=== PATIENT | female | born 1985 | race Caucasian/White ===

== ENCOUNTER 2021-01-02 12:17 | Outpatient (CLI) | payer BC, SELFPAY ==
[2021-01-02 12:45] VITALS: BP 126/81; PULSE 87
[2021-01-02 12:54] LABS: Basophils Percent Auto 0.2 % (0.2-1.2); Eosinophils Percent Auto 0.2 % (0-4.4); Hematocrit 30.3 % (37.0-47.0); Immature Granulocyte Absolute 0.04 K/mm3 (0.00-0.031); Immature Granulocyte Percent A 0.5 % (0-0.5); Lymphocytes Absolute Auto 1.49 K/mm3 (0.9-3.2); Lymphocytes Percent Auto 17.8 % (18.3-44.2); Mean Corpuscular Hemoglobin 31.7 pg (26-34); Mean Corpuscular Volume 96.2 fl (80-100); Mean Platelet Volume 10.5 fl (7.4-10.4); Monocytes Absolute Auto 0.6 K/mm3 (0.1-0.6); Monocytes Percent Auto 6.6 % (2.6-8.5); Neutrophils Absolute Auto 6.3 K/mm3 (1.3-6.7); Neutrophils Percent Auto 74.7 % (45.5-73.1); Platelet Count Result 375 k/mm3 (150-375); Red Blood Count 3.15 M/mm3 (4.2-5.4); Red Cell Distribution Width 12.1 % (11.5-14.5); White Blood Count 8.4 K/mm3 (4.5-10.0)
[2021-01-02 13:00] VITALS: BP 122/72; PULSE 85
[2021-01-02 13:07] LABS: Alanine Aminotransferase 22 U/L (4-35); Albumin Level 3.8 g/dL (3.5-5.1); Alkaline Phosphatase 173 U/L (38-126); Anion Gap 9 mmol/L (8-16); Aspartate Amino Transferase 29 U/L (14-36); Bilirubin,Total 0.2 mg/dL (0.2-1.3); Blood Urea Nitrogen 10 mg/dL (7-17); Calcium 9.7 mg/dL (8.4-10.2); Carbon Dioxide 24 mmol/L (22-30); Chloride 101 mmol/L (98-107); Estimated Glomerular Filt Rate > 60; Glucose 119 mg/dL (65-110); Potassium 3.9 mmol/L (3.4-5.0); Sodium 134 mmol/L (137-145)
[2021-01-02 13:09] LABS: Creatinine Urine 45.5 mg/dL; Total Protein Urine Random 9 mg/dL
[2021-01-02 13:16] VITALS: BP 116/69; PULSE 76
--- NOTE | 2021-01-02 13:18 | PC.NURSE ---
Called Dr. Chaparro with lab results, BPs and NST results. August D/C home to take Iron BID.
== END 2021-01-02 13:22 | disposition home or self-care (01) ==
LOC: ANHOBOP 12:27 → ANHOBPP 12:32
PROVIDERS: Visit Provider Obstetrics & Gynecology
DX: O13.3 Gestational [pregnancy-induced] hypertension without significant proteinuria, third trimester (principal); Z3A.37 37 weeks gestation of pregnancy
CPT/HCPCS: 36415; 59025; 80053; 82570; 84156; 84550; 85025; 99199

== ENCOUNTER 2021-01-24 17:23 | Inpatient (IN) | payer BC, SELFPAY ==
[2021-01-24] VITALS (13 sets, daily range): BP systolic 108–150; BP diastolic 63–114; PULSE 81–91; TEMP 36.6; BMI 40.2
--- NOTE | 2021-01-24 17:23 | LDADM ---
This patient, Eugenia Love, was admitted to Labor/Delivery/Recovery 106 on 01/24/21 at 17:23. Plans for labor, pain management and were discussed with patient. Patient/family oriented to hospital policies and general routines including ID bracelet, bed and alarms, visiting hours, pain management, procedures, bathroom and other care routines, personal items, smoking policy, room service/diet and guest tray routines, security routines, and visiting hours. Patient/Family are encouraged to report perceived risks to care and to ask questions if they do not understand what they are told or what they should do. See OBIX for further documentation.
[2021-01-24] MEDS: DINOPROSTONE 10 MG VAG INSERT VAGINAL (18:44)
[2021-01-24 18:45] LABS: Basophils Percent Auto 0.2 % (0.2-1.2); Eosinophils Percent Auto 0.1 % (0-4.4); Hematocrit 31.9 % (37.0-47.0); Hemoglobin 10.7 g/dL (12.0-15.0); Immature Granulocyte Absolute 0.06 K/mm3 (0.00-0.031); Immature Granulocyte Percent A 0.6 % (0-0.5); Lymphocytes Absolute Auto 1.84 K/mm3 (0.9-3.2); Lymphocytes Percent Auto 17.2 % (18.3-44.2); Mean Corpuscular HGB Conc 33.5 g/dl (32-36); Mean Corpuscular Hemoglobin 31.6 pg (26-34); Mean Corpuscular Volume 94.1 fl (80-100); Mean Platelet Volume 11.4 fl (7.4-10.4); Monocytes Absolute Auto 0.7 K/mm3 (0.1-0.6); Monocytes Percent Auto 6.3 % (2.6-8.5); Neutrophils Absolute Auto 8.1 K/mm3 (1.3-6.7); Neutrophils Percent Auto 75.6 % (45.5-73.1); Platelet Count Result 365 k/mm3 (150-375); Red Blood Count 3.39 M/mm3 (4.2-5.4); Red Cell Distribution Width 12.6 % (11.5-14.5); White Blood Count 10.7 K/mm3 (4.5-10.0)
[2021-01-24 18:56] LABS: Alanine Aminotransferase 26 U/L (4-35); Alkaline Phosphatase 234 U/L (38-126); Anion Gap 9 mmol/L (8-16); Aspartate Amino Transferase 28 U/L (14-36); Bilirubin,Total 0.3 mg/dL (0.2-1.3); Blood Urea Nitrogen 12 mg/dL (7-17); Calcium 10.7 mg/dL (8.4-10.2); Carbon Dioxide 23 mmol/L (22-30); Chloride 103 mmol/L (98-107); Estimated Glomerular Filt Rate > 60; Glucose 102 mg/dL (65-110); Potassium 4.1 mmol/L (3.4-5.0); Sodium 135 mmol/L (137-145); Uric Acid 8.2 mg/dL (2.5-7.5)
[2021-01-24 19:01] LABS: Add Urine Microscopic? YES; Appearance Urine Clear (Clear); Bacteria Urine Trace /hpf; Bilirubin Urine Negative (Negative); Blood Urine Negative (Negative); Color Urine Yellow (Yellow); Glucose Urine UA Negative (Negative); Ketones Urine Negative (Negative); Leukocyte Esterase Ur 2+ LEU/UL (NEGATIVE); Mucus Urine Rare /lpf; Nitrate Urine Negative (Negative); Protein Urine 2+ mg/dL (Negative); RBC Urine 0-2 /hpf (0-2); Specific Grav Ur 1.012 (1.001-1.035); Squamous Epithelial Cell Urine Moderate /hpf (Few); Urobilinogen Urine Negative mg/dL (<2.0)
[2021-01-24 20:09] LABS: Rubella IgG Antibody 21.3 IU/ML
[2021-01-25] VITALS (121 sets, daily range): BP systolic 95–180; BP diastolic 21–116; PULSE 56–107; RESP 11–18; TEMP 36.2–36.9; O2SAT 97–100
[2021-01-25] MEDS: LACTATED RINGERS 1,000 ML 125 ML IV CONT ×3 (05:44→15:33)
[2021-01-25] MEDS: OXYTOCIN 30 UNITS/NS 500 ML 30 UNITS/500 ML BAG 6 UNITS IV CONT (05:45)
--- NOTE | 2021-01-25 07:39 | WPDANESEPP ---
Anes - Eval Pre Procedure Procedure: Labor epidural Date/Time: 01/25/21 07:39 Surgeon: Abd pain with contractions Pre Op Diagnosis: Abd pain with contractions Patient Data Age: 35 Gender: F Height: 1.6 m Weight: 103 kg Last Vital Signs Temp 98 F 01/25/21 07:00 Pulse 79 01/25/21 07:37 Resp 16 01/25/21 00:05 BP 142/99 H 01/25/21 07:37 Allergies Allergy/AdvReac Type Severity Reaction Status Date / Time No Known Allergies Allergy Unverified 07/22/18 12:52 Laboratory Tests 01/24/21 01/24/21 01/24/21 18:09 18:09 18:09 WBC 10.7 K/mm3 H K/mm3 (4.5-10.0) RBC 3.39 M/mm3 L M/mm3 (4.2-5.4) Hgb 10.7 g/dL L g/dL (12.0-15.0) Hct 31.9 % L % (37.0-47.0) MCV 94.1 fl fl (80-100) MCH 31.6 pg pg (26-34) MCHC 33.5 g/dl g/dl (32-36) RDW 12.6 % % (11.5-14.5) Plt Count 365 k/mm3 k/mm3 (150-375) MPV 11.4 fl H fl (7.4-10.4) Immature Gran % (Auto) 0.6 % H % (0-0.5) Neut % (Auto) 75.6 % H % (45.5-73.1) Lymph % (Auto) 17.2 % L % (18.3-44.2) [place] % (Auto) 6.3 % % (2.6-8.5) Eos % (Auto) 0.1 % % (0-4.4) Baso % (Auto) 0.2 % % (0.2-1.2) Lymph # (Auto) 1.84 K/mm3 K/mm3 (0.9-3.2) [place] # (Auto) 0.7 K/mm3 H K/mm3 (0.1-0.6) Eos # (Auto) 0.0 K/mm3 K/mm3 (0-0.3) Baso # (Auto) 0.0 K/mm3 K/mm3 (0.0-0.1) Abs Immat Gran (auto) 0.06 K/mm3 H K/mm3 (0.00-0.031) Absolute Neuts (auto) 8.1 K/mm3 H K/mm3 (1.3-6.7) Absolute Nucleated RBC 0.0 K/mm3 K/mm3 (0.0-0.012) Nucleated RBC % 0.0 % % (0.0-0.2) Sodium Potassium Chloride Carbon Dioxide Anion Gap BUN Creatinine Estim Creat Clear Calc Estimated GFR Glucose Uric Acid Calcium Total Bilirubin AST ALT Alkaline Phosphatase Total Protein Albumin Urine Color Urine Appearance Urine pH Ur Specific [place] Urine Protein Urine Glucose (UA) Urine Ketones Ur Blood (Man) Urine Nitrate Urine Bilirubin Urine Urobilinogen Ur Leukocyte Esterase Urine RBC Urine WBC Ur Squamous Epith Cells Urine Bacteria Urine Mucus RPR Pending Rubella IgG Antibody 21.3 IU/ML IU/ML (10 - ) Blood Type Antibody Screen 01/24/21 01/24/21 01/24/21 18:10 18:10 18:10 WBC RBC Hgb Hct MCV MCH MCHC RDW Plt Count MPV Immature Gran % (Auto) Neut % (Auto) Lymph % (Auto) [place] % (Auto) Eos % (Auto) Baso % (Auto) Lymph # (Auto) [place] # (Auto) Eos # (Auto) Baso # (Auto) Abs Immat Gran (auto) Absolute Neuts (auto) Absolute Nucleated RBC Nucleated RBC % Sodium 135 mmol/L L mmol/L (137-145) Potassium 4.1 mmol/L mmol/L (3.4-5.0) Chloride 103 mmol/L mmol/L (98-107) Carbon Dioxide 23 mmol/L mmol/L (22-30) Anion Gap 9 mmol/L mmol/L (8-16) BUN 12 mg/dL mg/dL (7-17) Creatinine 0.80 mg/dL mg/dL (0.7-1.0) Estim Creat Clear Calc Not Reportable Estimated GFR > 60 (59 - ) Glucose 102 mg/dL mg/dL (65-110) Uric Acid 8.2 mg/dL H mg/dL (2.5-7.5) Calcium 10.7 mg/dL H mg/dL (8.4-
[2021-01-25] MEDS: fentaNYL CITRATE INJ (*CRX) 100 MCG/2 ML VIAL 50 MCG IV PUSH ×2 (09:03→11:35)
[2021-01-25 13:13] LABS: Rapid Plasma Reagin Non-Reactive (NonReactive)
[2021-01-25] MEDS: FAMOTIDINE 20 MG/2 ML VIAL IV PUSH (15:46)
--- NOTE | 2021-01-25 21:19 | WPDANESEFPP ---
Anes - Eval Final PreProcedure Day of Procedure 01/25/21 21:19 Patient weight: morbidly obese Heart: regular rate and rhythm Lungs: clear to auscultation and normal air movement Airway: Mallampati scale class II Neurological: alert and oriented Last oral intake: >/= 8 hours ASA classification: III Emergent: no Anesthetic plan: proceed Anesthesia type and monitoring: regional epidural and standard monitoring Other findings: C section - failure to progress Results Review: All pre-operative results and documents have been reviewed as part of the pre-operative evaluation. Informed Consent: The patient's anesthetic plan and its attendant risks and benefits were discussed with the patient/family/POA. Questions were solicited and answers provided to the satisfaction of the patient/family/POA.
--- NOTE | 2021-01-25 21:32 | PM.IMHP ---
H&P: HPI History of Present Illness Date/Time: 01/25/21 21:32 35-year-old 1 patient presents at 39 weeks due to mildly elevated blood pressures and proteinuria. Was admitted last night with PIH labs were drawn which were all normal other than elevated uric acid. had Cervidil placed which was removed this morning and started on Pitocin. Attempts at rupturing membranes were unsuccessful her earlier today and patient did spontaneously rupture later this afternoon. She has continued to labor and now has been 4cm for her last 2 exams with good active labor pattern and options have been discussed and she desires to proceed with delivery. Chief Complaint: Review of Systems Review of Systems: All systems reviewed & are unremarkable except as noted in HPI and below PMFSH Past Medical History Medical History Morbid obesity PIH ( induced hypertension) Social History Social History Smoking status: Never smoker Spiritual care concerns: No Meds Home Medications and Allergies Home Medications Medication Instructions Recorded Confirmed Type famotidine 20 mg PO BID 01/25/21 01/25/21 History Allergies Allergy/AdvReac Type Severity Reaction Status Date / Time No Known Allergies Allergy Unverified 07/22/18 12:52 Vital Signs Vital Signs - 24 hr 01/25/21 00:05 01/25/21 03:58 01/25/21 04:00 Temperature 36.8 C 36.7 C Pulse Rate 77 75 Respiratory Rate 16 Blood Pressure 144/85 H 133/84 Pulse Oximetry 01/25/21 05:45 01/25/21 05:47 01/25/21 06:01 Temperature 36.3 C L Pulse Rate 71 79 Respiratory Rate Blood Pressure 149/97 H 141/94 H Pulse Oximetry 01/25/21 06:16 01/25/21 06:31 01/25/21 07:00 Temperature 36.6 C Pulse Rate 78 76 Respiratory Rate Blood Pressure 135/89 122/72 Pulse Oximetry 01/25/21 07:01 01/25/21 07:16 01/25/21 07:33 Temperature Pulse Rate 96 73 90 Respiratory Rate Blood Pressure 154/99 H 149/103 H 180/116 H Pulse Oximetry 01/25/21 07:37 01/25/21 07:46 01/25/21 08:01 Temperature Pulse Rate 79 87 89 Respiratory Rate Blood Pressure 142/99 H 129/87 134/85 Pulse Oximetry 01/25/21 08:42 01/25/21 08:46 01/25/21 09:00 Temperature 36.6 C Pulse Rate 77 72 Respiratory Rate Blood Pressure 152/111 H 145/79 H Pulse Oximetry 01/25/21 09:01 01/25/21 09:16 01/25/21 09:31 Temperature Pulse Rate 74 66 63 Respiratory Rate Blood Pressure 145/90 H 130/87 120/77 Pulse Oximetry 01/25/21 09:46 01/25/21 10:01 01/25/21 10:16 Temperature Pulse Rate 68 63 60 Respiratory Rate Blood Pressure 123/81 124/76 131/85 Pulse Oximetry 01/25/21 10:38 01/25/21 10:46 01/25/21 11:00 Temperature 36.3 C L Pulse Rate 68 67 Respiratory Rate Blood Pressure 144/94 H 142/89 H Pulse Oximetry 01/25/21 11:01 01/25/21 11:16 01/25/21 11:31 Temperature Pulse Rate 56 L 71 66 Respiratory Rate Blood Pressure 153/96 H 141/96 H 153/94 H Pulse Oximetry 01/25/21 11:46 01/25/21 12:01 01/25/21 12:16 Temperature Pulse Rate 73 63 75 Respiratory Rate Blood Pressure 129/81 138/87 136/83 Pulse Oximetry 01/25/21 13:00 01/25/21 13:08 01/25/21 13:16 Temperature 36.6 C Pulse Rate 107 H 76 Respiratory Rate Blood Pressure 142/21 H 141/96 H Pulse Oximetry 01/25/21 13:31 01/25/21 13:46 01/25/21 14:01 Temperature Pulse Rate 81 76 93 Respiratory Rate Blood Pressure 145/96 H 125/88 121/87 Pulse Oximetry 01/25/21 14:16 01/25/21 14:46 01/25/21 15:01 Temperature Pulse Rate 79 79 73 Respiratory Rate Blood Pressure 139/98 H 158/101 H 128/113 H Pulse Oximetry 01/25/21 15:05 01/25/21 15:18 01/25/21 15:23 Temperature 36.6 C Pulse Rate Respiratory Rate Blood Pressure Pulse Oximetry
--- NOTE | 2021-01-25 21:40 | WPDHPUPDATE1 ---
History and Physical Update Update Date/Time: 01/25/21 21:40 History and Physical has been reviewed, including an updated exam of the patient. There are NO changes in the patient's condition. Risks, benefits, and alternatives have been discussed and questions answered. Patient agrees to proceed with procedure.
--- NOTE | 2021-01-25 22:17 | P.PCNOB_ITS ---
OB - Delivery Note Procedure Procedure: Procedures Operation Date: 01/25/21 21:30 <No data on this case meets the specified criteria> events: Induced HTN Intrapartal events: Failure to Progress in Labor Route of delivery: Specimen: No Quantitative Blood Loss (ml): 1,050 Anesthesia type: Epidural Disposition: floor Narrative: Patient was prepped and draped in usual manner for this procedure. Pfannenstiel incision was made and carried down to the fascia which was extended bilaterally the length of the skin incision. Superiorly and inferiorly dissected away from the rectus muscles which were then bluntly dissected pe ritoneum was entered and the bladder flap was developed. Uterus was then incised and lower incision was extended bilaterally clear fluid was noted. Vertex was delivered rest of baby without difficulty. Cord clamped cut placenta removed manually. Uterus is atonic initially though did respond to Pitocin. Uterus was closed using 0 Monocryl in a running interlocking manner with good approximation and hemostasis noted. Uterus was turned to the abdomen gutters were cleared of serosanguineous fluid and clots and all subfascial tissue was noted be hemostatic. Fascia was approximated using 0 Vicryl from the left angle midline and the right angle to midline in a running manner. Subcutaneous tissue approximated using 0 plain suture and dianne were used to approximate the skin edges. Patient was sent to recovery room in stable condition. Baby Weeks of gestation at delivery: 39 Infant gender: Female Weight (pounds): 7 Weight (ounces): 8 score one minute: 9 score five minutes: 9
[2021-01-25] MEDS: OXYTOCIN 30 UNITS/NS 500 ML 30 UNITS/500 ML BAG 125 UNITS IV CONT (23:00)
[2021-01-26] VITALS (23 sets, daily range): BP systolic 103–147; BP diastolic 62–94; PULSE 70–100; RESP 15–20; TEMP 36.2–37; O2SAT 94–100
--- NOTE | 2021-01-26 01:06 | PC.NURSE ---
Patient transferred to post room #282 via bed. Support person present. Oriented to unit, room, information board, rooming in, admission packet and security measures. Patient verbalizes understanding.
[2021-01-26] MEDS: KETOROLAC 30 MG/ML VIAL (*BKC) IV PUSH ×2 (01:50→09:24)
[2021-01-26 05:40] LABS: Basophils Percent Auto 0.2 % (0.2-1.2); Eosinophils Percent Auto 0.1 % (0-4.4); Hematocrit 25.2 % (37.0-47.0); Hemoglobin 8.2 g/dL (12.0-15.0); Immature Granulocyte Absolute 0.05 K/mm3 (0.00-0.031); Immature Granulocyte Percent A 0.4 % (0-0.5); Lymphocytes Absolute Auto 1.38 K/mm3 (0.9-3.2); Lymphocytes Percent Auto 12.4 % (18.3-44.2); Mean Corpuscular HGB Conc 32.5 g/dl (32-36); Mean Corpuscular Hemoglobin 31.5 pg (26-34); Mean Corpuscular Volume 96.9 fl (80-100); Mean Platelet Volume 11.3 fl (7.4-10.4); Monocytes Absolute Auto 0.5 K/mm3 (0.1-0.6); Monocytes Percent Auto 4.8 % (2.6-8.5); Neutrophils Absolute Auto 9.1 K/mm3 (1.3-6.7); Neutrophils Percent Auto 82.1 % (45.5-73.1); Platelet Count Result 269 k/mm3 (150-375); Red Cell Distribution Width 12.8 % (11.5-14.5); White Blood Count 11.1 K/mm3 (4.5-10.0)
[2021-01-26] MEDS: DEXTROSE 5%/0.45% SOD CHL 1,000 ML 125 ML IV CONT (06:15)
--- NOTE | 2021-01-26 07:00 | PC.NURSE ---
PT introductions made and plan of care discussed per post op c section, pain management, bottle feeding, daily care activities. PT sole recipient of such instructions and pt demonstrates no barriers to learning at this time. PT receives instructions this shift per one to one, mom baby care guide and demonstrations. PT verbalized understanding of such care.
[2021-01-26] MEDS: SIMETHICONE 80 MG TAB.CHEW PO ×5 (09:23→23:36)
[2021-01-26] MEDS: DOCUSATE SODIUM 100 MG CAPSULE PO ×2 (09:24→17:28)
[2021-01-26] MEDS: MULTIVIT/MIN/PREN/FOL AC/IRON TABLET 1 TAB PO (09:24)
[2021-01-26] MEDS: POLYSACCHARIDE IRON COMPLEX 150 MG CAPSULE PO ×2 (09:24→17:28)
[2021-01-26] MEDS: HYDROcodone/acetaminophen (*CRX) 5-325 MG TABLET 1 TAB PO ×4 (09:25→23:37)
--- NOTE | 2021-01-26 12:36 | WPDANLDPN2 ---
Anes-Prog Note L&D Date/Time: 01/26/21 12:36 Comfortable throughout: labor and section Neuraxial method: epidural Epidural/Spinal procedure site: clean & non-tender Neuro status: Neuro function grossly intact. Cardiovascular status: normal Respiratory status: normal Airway patency: baseline Mental status: baseline Post-Op hydration status: normal Vital Signs: Last Vital Signs Temp 36.9 C 01/26/21 11:34 Pulse 79 01/26/21 11:34 Resp 18 01/26/21 11:34 BP 105/67 01/26/21 11:34 Pulse Ox 97 01/26/21 11:34 Pain score (VAS): 04/23 I/O: Intake & Output 01/25/21 01/26/21 01/26/21 23:59 07:59 15:59 Intake Total 400 240 400 Output Total 1400 263 550 Balance -1000 -23 -150 Post-procedural complaints: none Patient feedback: Patient satisfied with anesthetic care.
--- NOTE | 2021-01-26 12:37 | WPDANLDNPN2 ---
Anes-Prog Note L&D-Neuraxial Date/Time: 01/26/21 12:37 Neuraxial medications: epidural PF morphine Opiod-related complaints: pruritis mild, no treatment Patient feedback: Patient satisfied with post-operative pain management.
[2021-01-26] MEDS: IBUPROFEN 600 MG TABLET PO ×2 (17:27→23:37)
[2021-01-26] MEDS: HYDROcodone/acetaminophen (*CRX) 10-325 MG TABLET 1 TAB PO (21:01)
[2021-01-26] MEDS: TETANUS,DIPHTHERIA,AC PERTUSSIS ADULT (0.5 ML) BOOSTRIX IM (21:02)
[2021-01-27 04:45] VITALS: BP 140/82; PULSE 81; RESP 18; TEMP 36.5
[2021-01-27] MEDS: HYDROcodone/acetaminophen (*CRX) 10-325 MG TABLET 1 TAB PO ×2 (05:08→10:53)
[2021-01-27] MEDS: SIMETHICONE 80 MG TAB.CHEW PO ×2 (05:28→10:52)
--- NOTE | 2021-01-27 07:25 | PM.OBDSVD ---
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 Status: Acute OB - DS: Summary OB Procedures : None OB Procedures Intrapartum: OB Procedures: : None Peripartum Data Procedures: Procedures Operation Date: 01/25/21 21:30 Actual Procedure Side Surgeon p Section Radhames Porter MD Time Spent with Patient Time attestation: Total time spent providing and/or coordinating discharge services: Discharge Plan Discharge Discharging Clinician: Radhames Porter Patient Disposition: Home, Self-Care Activity: as tolerated Diet: as tolerated Wound Care Instructions: incision open to air Discharge Instructions: Education: Mom and Baby Guide Given to: Mother Follow-Up: Call your delivering provider's office for an appointment to be seen in: 3 weeks Mom and baby should come to [facility] for the follow-up appointment. Appointment Date/Time: Friday, January 29, 2021 at 11:00 am What to expect at your follow-up visit: Blood Pressure Check Physical Assessment Call [phone] if you are unable to keep your appointment time. BREAST CARE: * Wear a snug supportive bra. * For engorgement discomfort: Bottle Feeding: * May apply ice packs ABDOMINAL INCISION: (if applicable) * Allow incision to air dry * Do NOT use lotions for powders on your incision * When showering, allow soap and water to run over the incision, but do not wash incision EPISIOTOMY/PERINEAL CARE: * Until bleeding stops, use your norman bottle after urinating * Change your pad frequently throughout the day * No tub baths until seen by your physician - You may shower ACTIVITY: * Rest as much as possible. * Do not exercise or lift anything heavier than your baby (such as laundry or other children.) * Avoid stairs or driving as much as possible. * Do not put anything into the vagina. No douching, tampons, or sexual activity until seen by physician. NOTIFY PHYSICIAN IF YOU HAVE ANY QUESTIONS OR IF ANY OF THE FOLLOWING SYMPTOMS OCCUR: * If your incision becomes red, swollen, or more painful than what you have experienced in the hospital. * If your vaginal bleeding becomes foul smelling. * If your vaginal bleeding becomes more heavy than a period or if your bleeding changes from pink to bright red. However, you may pass an occasional walnut-sized clot once or twice for the first week . * If you experience a sharp, shooting pain in your calves. * If you discover a hard, reddened area on your breast or if you experience flu-like symptoms. DIET: * Eat regular, well-balanced meals. * Drink plenty of fluids daily. Patient Instructions: Antibiotic Form, (DC) Stand Alone Forms: General Discharge Information Follow-up/Referrals: Radhames Porter MD [Physician] - 3 Weeks Discharge Medications: New hydrocodone-acetaminophen 5-325 mg Tablet 1 tablet PO Q6H Qty: 20 RF: 0 ibuprofen 600 mg Tablet 600 mg PO Q6H PRN (Reason: Cramping) Qty: 30 RF: 0 Continued famotidine 20 mg tablet 20 mg PO BID RF: 0 Date of admission: 01/24/21 17:23 Primary Care Provider: PHYSICIAN,[employer] Admitting Provider: Radhames Porter Attending physician on admission: Radhames Porter Condition: Stable
[2021-01-27] MEDS: MULTIVIT/MIN/PREN/FOL AC/IRON TABLET 1 TAB PO (10:52)
[2021-01-27] MEDS: DOCUSATE SODIUM 100 MG CAPSULE PO (10:52)
[2021-01-27] MEDS: FAMOTIDINE 20 MG TABLET PO (10:53)
[2021-01-27] MEDS: POLYSACCHARIDE IRON COMPLEX 150 MG CAPSULE PO (10:53)
[2021-01-29 11:22] VITALS: BP 146/81; PULSE 90; RESP 20; TEMP 36.7; O2SAT 100
== END 2021-01-27 12:18 | disposition home or self-care (01) | DRG 540 ==
LOC: ANHLDR 01-25 21:38 → ANHOB2 01-26 01:10
PROVIDERS: Admitting Provider Obstetrics & Gynecology; Visit Provider Obstetrics & Gynecology
PROC: 10D00Z1 Extraction of Products of Conception, Low, Open Approach (ICD-10-PCS; CPT 59514; principal; 2021-01-25 21:30)
DX: O14.94 Unspecified pre-eclampsia, complicating childbirth (principal); O13.4 Gestational [pregnancy-induced] hypertension without significant proteinuria, complicating childbirth; Z37.0 Single live birth; Z3A.39 39 weeks gestation of pregnancy; O99.214 Obesity complicating childbirth; E66.01 Morbid (severe) obesity due to excess calories; O62.1 Secondary uterine inertia
CPT/HCPCS: 36415; 80053; 81001; 84550; 85025; 86592; 86762; 86850; 86900; 86901; 87086; 90715; A9270; J1885; J2274; J2405; J2590; J2795; J3010; J7120